=== PATIENT | male | born 1940 | race Caucasian/White ===

== ENCOUNTER 2020-07-15 05:42 | Day surgery (SDC) | payer MEDICARE, OTHER ==
[2020-07-08 16:20] LABS: BASOPHILS % (AUTO) 0.3 % (0-1); EOSINOPHILS # (AUTO) 0.1 X10'3 (0-0.9); EOSINOPHILS % (AUTO) 1.7 % (0-6); LYMPHOCYTES # (AUTO) 1.9 X10'3 (1.1-4.8); LYMPHOCYTES % (AUTO) 22.4 % (21-51); MEAN CORPUSCULAR HEMOGLOBIN 29.9 PG (27.0-31.0); MEAN CORPUSCULAR HGB CONC 33.9 g/dL (33.0-36.5); MEAN CORPUSCULAR VOLUME 88.4 FL (78-98); MEAN PLATELET VOLUME 8.5 FL (7.4-10.4); MONOCYTES # (AUTO) 0.9 X10'3 (0-0.9); MONOCYTES % (AUTO) 10.9 % (2-12); NEUTROPHILS # (AUTO) 5.4 X10'3 (1.8-7.7); NEUTROPHILS % (AUTO) 64.7 % (42-75); PRE OP HEMATOCRIT 47.6 % (42.0-52.0); PRE OP HEMOGLOBIN 16.1 g/dL (14.0-17.9); PRE OP PLATELET COUNT 174 X10'3 (140-440); RED BLOOD COUNT 5.39 X10'6 (4.70-6.10); RED CELL DISTRIBUTION WIDTH 14.6 % (11.5-14.5)
[2020-07-08 16:36] LABS: ALBUMIN 4.2 G/DL (3.4-5.0); ALBUMIN/GLOBULIN RATIO 1.2 (1.1-1.5); ALKALINE PHOSPHATASE 58 IU/L (46-116); BLOOD UREA NITROGEN 25 MG/DL (7-18); CALCIUM 8.8 MG/DL (8.5-10.1); CHLORIDE 102 MMOL/L (99-107); CREATININE 0.96 MG/DL (0.60-1.10); PRE OP ALT 51 U/L (30-65); PRE OP ANION GAP 11 (8-16); PRE OP AST 35 U/L (10-37); PRE OP BILIRUB, TOTAL 0.5 MG/DL (0.0-1.0); PRE OP GLUCOSE 97 MG/DL (70-104); PRE OP POTASSIUM 4.4 MMOL/L (3.4-5.1); PRE OP SODIUM 141 MMOL/L (135-145); TOTAL CARBON DIOXIDE 28.3 MMOL/L (24-32); TOTAL PROTEIN 7.7 G/DL (6.4-8.2); eGFR 76 ML/MIN
[2020-07-15] VITALS (10 sets, daily range): BP systolic 119–147; BP diastolic 66–81
[~2020-07-15] VITALS: Ht 185.4 cm; Wt 90.7 kg
[~2020-07-15 05:42] MED LIST: ASPI-100 PO; DOCUMENT DATE & TIME OF BETA-BLOCKER PO ONE; FLEC50TA28 PO; FLO0.4C PO; LEVO137T24 PO; LISI10TA27 PO; METO100T7 PO; OMEP40CA13 PO; PRAV40TA3 PO; TADA5TAB2 PO
[2020-07-15] MEDS: famotidine 20mg tablet PO ONE (06:21)
[2020-07-15] MEDS: ringers solution, lacted 1,000 ML IV SCH (06:22)
[2020-07-15] MEDS: cefazolin/dext.iso 2gm/100ml 100 ML IV ONE (06:22)
[2020-07-15] MEDS ORDERED: midazolam 1 mg/ML 2ml injection ONE (07:12)
[2020-07-15] MEDS ORDERED: fentaNYL/PF 50MCG/1 ML 2ML syringe ONE (07:12)
[2020-07-15] MEDS ORDERED: LIDOcaine 2% (20mg/ml) 5ml vial ONE (07:13)
[2020-07-15] MEDS ORDERED: propofol inj 20 ML IV ONE (07:13)
[2020-07-15] MEDS ORDERED: rocuronium 10mg/ml inj IV ONE (07:13)
[2020-07-15] MEDS ORDERED: dexamethasone sod phosphate 10mg/ml inj ONE (07:25)
[2020-07-15] MEDS ORDERED: morphine 4 MG/ML inj SYRINge IV PRN (07:25)
[2020-07-15] MEDS ORDERED: ringers solution, lacted 1,000 ML IV SCH (07:25)
[2020-07-15] MEDS ORDERED: proCHLORperazine 10 MG/2 ml inj IV PRN (07:25)
[2020-07-15] MEDS ORDERED: morphine 2 MG/ML inj. syringe IV PRN (07:25)
[2020-07-15] MEDS ORDERED: ondansetron/PF 4mg/2ml inj IV PRN (07:25)
[2020-07-15] MEDS ORDERED: sevoflurane 250ml liquid IH ONE (07:25)
[2020-07-15] MEDS ORDERED: meperidine/PF 25mg/ml syringe IV PRN ×2 (07:25)
[2020-07-15] MEDS ORDERED: ondansetron/PF 4mg/2ml inj ONE (07:35)
[2020-07-15] MEDS ORDERED: BUPIVAcaine/PF 2.5 mg/ml (0.25%) 30ml vial ONE (07:49)
[2020-07-15] MEDS ORDERED: LIDOcaine 1% 30ml preserv. free vial ONE (07:49)
[2020-07-15] MEDS: BUPIVAcaine/PF 2.5 mg/ml (0.25%) 30ml vial ONE (08:23)
[2020-07-15] MEDS: LIDOcaine 1% 30ml preserv. free vial ONE (08:24)
[2020-07-15] MEDS ORDERED: acetaminophen 1,000mg/100ml IV 100 ML IV ONE (08:32)
[2020-07-15] MEDS ORDERED: neostigmine methylsulfate 1 MG/ML 10ml vial ONE (08:59)
[2020-07-15] MEDS ORDERED: glycopyrrolate 0.2mg/ml inj ONE (08:59)
--- NOTE | 2020-07-15 09:15 | NUR ---
PT ARRIVED FROM OR VIA [facility] WITH DR SÁNCHEZ-ANESTHESIA REPORT GIVEN, VSS, PT DENIES PAIN, WAKING UP, BANDAIDS X 3 TO ABD-CDI, PIV 20G TO LEFT HAND-LR RUNNING AT 100ML/HR, SCDS ON.
[2020-07-15] MEDS ORDERED: HYDROcodone/acetaminophen 5mg/325mg tablet PO PRN (09:20)
[2020-07-15] MEDS: meperidine/PF 25mg/ml syringe IV PRN (10:04)
--- NOTE | 2020-07-15 10:45 | NUR ---
BLADDER SCAN AFTER VOID TO BE 23CC
[2020-07-15] MEDS: HYDROcodone/acetaminophen 5mg/325mg tablet PO PRN (10:52)
--- NOTE | 2020-07-15 10:55 | NUR ---
PT DOING WELL, VSS, TOLERATING FLUIDS, DEMEROL X 1 FOR PAIN, UP TO BATHROOM-ABLE TO VOID AND GET DRESSED, PAIN TOLERABLE, PIV D/CD-CANNULA INTACT, BANDAIDS X 3 TO ABD-CDI, GIVEN D/C INSTRUCTIONS-ALL QUESTIONS ANSWERED, TAKEN WITH ALL BELONGINGS AND MED RX TO VEHICLE-FAMILY TO GIVE RIDE HOME.
== END 2020-07-15 10:55 | disposition home or self-care (01) ==
LOC: PAS 05:42
PROVIDERS: ATTEND Surgery
DX: K42.9 Umbilical hernia without obstruction or gangrene (principal); K40.90 Unilateral inguinal hernia, without obstruction or gangrene, not specified as recurrent; I10 Essential (primary) hypertension; E03.9 Hypothyroidism, unspecified; K21.9 Gastro-esophageal reflux disease without esophagitis; Z79.899 Other long term (current) drug therapy; Z98.890 Other specified postprocedural states; Z79.82 Long term (current) use of aspirin
CPT/HCPCS: 36415; 49587; 49650; 80053; 82948; 85025; 93005; C1781; J0131; J1100; J2001; J2175; J2250; J2405; J2704; J2710; J3010; J3490; A4215; A4618; J7120

== ENCOUNTER 2024-12-26 08:57 | Day surgery (SDC) | payer MEDICARE, OTHER ==
[2024-12-26] VITALS (7 sets, daily range): BP systolic 99–146; BP diastolic 59–77; PULSE 54–60; RESP 10–18; TEMP 97.8; O2SAT 94–99
[~2024-12-26] VITALS: Ht 185.4 cm; Wt 81.6 kg
[~2024-12-26 08:57] MED LIST changes: -ASPI-100 PO; -FLO0.4C PO; -LISI10TA27 PO; +NETA2.5D EACHEYE; -OMEP40CA13 PO; +OMEP40CA21 PO; -PRAV40TA3 PO; +RIVA20TA PO; +ROSU10TA98 PO; +TAMS-55 PO; +TEST200V33 IM; +ringers solution, lacted 1,000 ML IV SCH; +simethicone 40mg/0.6ml oral drops 15ml PO ONE; +timolol EACHEYE
--- NOTE | 2024-12-26 10:50 | ELECTROCARDIOGRAPH REPORT ---
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 Dick Wilks Measurements Intervals [place] Rate: 58 P: 52 MA: 209 QRS: 5 QRSD: 130 T: 110 QT: 431 QTc: 424 Interpretive Statements Sinus bradycardia IVCD, consider atypical RBBB Nonspecific T abnormalities, lateral leads ST elevation, consider anterior injury Electronically Signed On 12-29-2024 7:11:[address] Dick Wilks Please click the below link to view image of tracing.
[2024-12-26] MEDS ORDERED: fentaNYL/PF 50MCG/1 ML 2ML syringe ONE (11:15)
[2024-12-26] MEDS ORDERED: propofol inj 20 ML IV ONE (11:19)
== END 2024-12-26 12:39 | disposition home or self-care (01) ==
LOC: GI LAB 08:57
PROVIDERS: ATTEND Internal Medicine Gastroenterology
DX: K62.5 Hemorrhage of anus and rectum (principal); R10.11 Right upper quadrant pain; K57.30 Diverticulosis of large intestine without perforation or abscess without bleeding; K64.8 Other hemorrhoids; E03.9 Hypothyroidism, unspecified; I10 Essential (primary) hypertension; E11.9 Type 2 diabetes mellitus without complications; E78.5 Hyperlipidemia, unspecified; K21.9 Gastro-esophageal reflux disease without esophagitis; I48.91 Unspecified atrial fibrillation; I25.2 Old myocardial infarction; Z79.01 Long term (current) use of anticoagulants; Z79.890 Hormone replacement therapy; Z79.899 Other long term (current) drug therapy; Z98.890 Other specified postprocedural states
CPT/HCPCS: 45378; 93005; A4618; A4620; A6402; A7000; J2704; J3010; J7030; J7120; Z7512; Z7610; A6449